=== PATIENT | male | born 1980 | race Caucasian/White ===

== ENCOUNTER 2017-10-11 08:39 | Emergency (ER) | payer OTHER ==
[2017-10-11 08:42] VITALS: TEMP 98.2; BMI 28.1
[2017-10-11] MEDS ORDERED: MECLIZINE HCL 25 MG TABLET (FP) PO ONE (09:11)
[2017-10-11] MEDS ORDERED: MECLIZINE HCL 25 MG TABLET (FP) ONE (09:21)
--- NOTE | 2017-10-11 09:33 | PDOC ---
History of Present Illness - General History Source: Patient - History of Present Illness Timing/Duration: other (2 days) Associated Symptoms: reports: headaches, nausea/vomiting. denies: chest pain, fever/chills, shortness of breath, weakness <Radha Arvizu - Last Filed: 10/11/17 11:47> <Hao Radford - Last Filed: 10/11/17 14:20> - General Chief Complaint: Lightheaded Stated Complaint: REVISIT/ DIZZINESS Time Seen by Provider: 10/11/17 08:47 Past History - Past Medical History COPD: No Hypercholesterolemia: No - Suicide/Smoking/Psychosocial Hx Smoking Status: No Smoking History: Never smoked Number of Cigarettes Smoked Daily: 0 Hx Alcohol Use: No Drug/Substance Use Hx: No Substance Use Type: None <Radha Arvizu - Last Filed: 10/11/17 11:47> <Hao Radford - Last Filed: 10/11/17 14:20> - Past Medical History Allergies/Adverse Reactions: Allergies Allergy/AdvReac Type Severity Reaction Status Date / Time No Known Allergies Allergy Verified 10/11/17 08:42 Home Medications: Ambulatory Orders Ibuprofen [Motrin] 600 mg PO TID #14 tablet 02/23/12 Meclizine HCl [Antivert -] 25 mg PO QID #28 tablet 10/11/17 Review of Systems - Review of Systems Constitutional: No: Chills, Fever HEENTM: No: Blurred Vision Respiratory: No: Shortness of Breath Cardiac (ROS): No: Chest Pain, Palpitations ABD/GI: Yes: Nausea, Vomiting. No: Constipated, Diarrhea, Abdominal cramping : No: Dysuria Neurological: Yes: Headache, Dizziness. No: Numbness, Tingling, Weakness, Unsteady Gait <Radha Arvizu - Last Filed: 10/11/17 11:47> *Physical Exam - Vital Signs Last Vital Signs Temp Pulse Resp BP Pulse Ox 98.2 F 89 18 137/77 99 10/11/17 08:40 10/11/17 08:40 10/11/17 08:40 10/11/17 08:40 10/11/17 08:40 - Physical Exam General Appearance: Yes: Appropriately Dressed. No: Apparent Distress HEENT: positive: Normal Voice Neck: positive: Supple Respiratory/Chest: positive: Lungs Clear, Normal Breath Sounds. negative: Respiratory Distress Cardiovascular: positive: Regular Rate, S1, S2 Gastrointestinal/Abdominal: positive: Soft. negative: Tender Extremity: positive: Normal Inspection Integumentary: positive: Dry, Warm Neurologic: positive: vat overhauler II-XII NML intact, Fully Oriented, Alert, Normal Mood/ Affect, Motor Strength 5/5, Finger to Nose (no nystagmus, Syd intact, no ataxia , no drift). negative: Facial Droop, Confused, Disoriented <Radha Arvizu - Last Filed: 10/11/17 11:47> - Vital Signs Last Vital Signs Temp Pulse Resp BP Pulse Ox 98.2 F 80 18 129/74 98 10/11/17 08:40 10/11/17 12:00 10/11/17 12:00 10/11/17 12:00 10/11/17 12:00 <Hao Radford - Last Filed: 10/11/17 14:20> ED Treatment Course - RADIOLOGY Radiology Studies Ordered: Category Date Time Status HEAD CT WITHOUT CONTRAST [CT] Stat CT Scan 10/11/17 09:11 Ordered <Radha Arvizu - Last Filed: 10/11/17 11:47> - Medications Given in the ED: ED Medications Discontinued Medications Generic Name Dose Route Start Last Admin Trade Name Freq PRN Reason Stop Dose Admin Meclizine HCl 25 mg 10/11/17 09:11 10/11/17 09:25 Antivert - PO 10/11/17 09:12 25 mg ONCE ONE Administration <Hao Radford - Last Filed: 10/11/17 14:20> Medical Decision Making - Medical Decision Making 10/11/17 09:12 37 yo M, denies any pmhx, here with 2nd ED visit for dizziness. Pt was seen in ED yesterday where it was documented that pt was c/o vertigo and n/v. Labs unremarkable except for very mild increase in LFTs. Of note, patient denies alcohol use, hepatitis or recent travel. Chest x-ray and orthostatic vital signs were also documented as normal. Patient was not given any meds in ED or prescription to go home with. Patient returns stating that dizziness has worsened since last ED visit. Describes dizziness as "feeling drunk" rather than room spinning and only occurs when sitting or standing up. Does not occur at rest. Also complaining of vague occipital headache, not worst of his life. Denies nausea or vomiting at this time and no visual changes, slurred speech or focal weakness. No chest pain or shortness of breath. No recent URI symptoms or tinnitus. No new medications. See exam Dizziness ?vertigo given hx No h/o same in past No recent uri Neg w/u in ED for same yesterday, no imaging done, not given meds Pt stable w/ no focal deficits or cerebellar ab/nl Possibly peripheral, unlikely CVA, unlikely cardiac -will scan given worsening of sxs and 2nd ED visit -meclizine and reassess -anticipate dc w/ neuro f/u as d/w ED attg 10/11/17 11:39 CTH read as negative and EKG unremarkable as d/w Dr Radford. Pt reports improvement w/ meds. Rpt neuro testing unchanged from prior. Pt stable for dc w / neuro f/u in a week. Strict return precautions given <Radha Arvizu - Last Filed: 10/11/17 11:47> - Medical Decision Making I reviewed the case of the mid-level practitioner and was available for consultation while in the emergency department <Hao Radford - Last Filed: 10/11/17 14:20> *DC/Admit/Observation/Transfer <Radha Arvizu - Last Filed: 10/11/17 11:47> <Hao Radford - Last Filed: 10/11/17 14:20> Diagnosis at time of Disposition: Vertigo - Discharge Dispostion Disposition: HOME Condition at time of disposition: Improved - Prescriptions Prescriptions: Meclizine HCl [Antivert -] 25 mg PO QID #28 tablet - Referrals Referrals: Parviz Dover [Primary Care Provider] - Alphonso Perla MD [Staff Physician] - - Patient Instructions Printed Discharge Instructions: Vertigo Additional Instructions: Miguel exploracin CAT y EKG fueron normales hoy. Por favor, tome meclizine rebecca se indica. Si adriel sntomas persisten y / o desarrolla empeoramiento de dolor de jd, cambios en la vista, debilidad en miguel brazo o pierna mayormente de un lado, o jono park, regrese a ER de inmediato Por favor, llame al Dr. Perla de neurologa maana para hacer darion libia para ser visto en darion semana Print Language: AMERICAN - Post Discharge Activity Forms/Work/School Notes: Back to Work
[2017-10-11 12:06] VITALS: BP 129/74; PULSE 80
--- NOTE | 2017-10-11 19:50 | EKG ---
Test Reason : Blood Pressure : / mmHG Vent. Rate : 072 BPM Atrial Rate : 072 BPM P-R Int : 162 ms QRS Dur : 098 ms QT Int : 362 ms P-R-T Axes : 040 -26 002 degrees QTc Int : 396 ms NORMAL SINUS RHYTHM BORDERLINE ECG WHEN COMPARED WITH ECG OF 10-OCT-2017 21:04, NO SIGNIFICANT CHANGE WAS FOUND Confirmed by AMANDA PEARCE MD ([id number]) on 10/11/2017 7:50:43 PM Referred By: Confirmed By:AMANDA PEARCE MD
== END 2017-10-11 12:04 | disposition home or self-care (01) ==
LOC: JER 08:39
DX: R42 Dizziness and giddiness (principal)
CPT/HCPCS: 70450-TC; 93005; 93010; 99283-25